=== PATIENT | female | born 1990 | race Caucasian/White ===

== ENCOUNTER → 2017-11-26 14:24 | Outpatient (CLI) | payer OTHER, SELFPAY ==
--- NOTE | 2017-11-26 | XR_ITS ---
XR cervical spine 5V Ordering Physician: Mayuri Garza Patient Age: 27 years: Female HISTORY: ITS.REASON: PAIN PARESTHESIAS TECHNIQUE: Five-view cervical spine series COMPARISON :C-spine from today FINDINGS The cervical spine is intact. Vertebral bodies and disc spaces intact well-maintained. Normal alignment. The neural foramen are widely patent and appear normal. Facets appear satisfactory. C1-C2 relationships normal. Apices the lungs are clear. Prevertebral soft tissues are generous but normal. IMPRESSION: C-spine intact with no fracture nor subluxation. C-spine appears normal
--- NOTE | 2017-11-26 | XR_ITS ---
XR shoulder LT min 2V Ordering Physician: Mayuri Garza Patient Age: 27 years: Female HISTORY: ITS.REASON: PAIN PARESTHESIAS TECHNIQUE: 3 views left shoulder COMPARISON :Previous left shoulder 08/29/2014 FINDINGS Left shoulder is intact with no fracture nor subluxation. The humeral head and neck intact. The glenohumeral joint intact and satisfactory. AC joint unremarkable scapula and visualized upper left apex and ribs unremarkable. Generous Old calcified hilar node left ирина instantly noted with a few scattered calcified granulomas left lung IMPRESSION: Negative left shoulder. Left shoulder Intact with No change since 2014
--- NOTE | 2017-11-26 | XR_ITS ---
XR thoracic spine 3V Ordering Physician: Mayuri Garza Patient Age: 27 years: Female HISTORY: ITS.REASON: PAIN PARESTHESIAS thoracic pain Pain paresthesias. 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 Pain for 2 days TECHNIQUE: AP lateral swimmer's view T-spine. COMPARISON :C-spine from today FINDINGS the thoracic vertebral bodies are intact. No compression fractures. There is a very slight subtle wedge configuration towards the lower thoracic vertebral bodies reflects normal anatomical variation in contributes to some mild kyphosis at the lower T-spine. The disc spaces are well-maintained. On the AP view there is some mild levocurvature of the lower thoracic spine a roughly 10 degrees on this nonstanding exam. Very subtle compensatory dextrocurvature above and below this even less evident Pedicles intact no paraspinal mass. Posterior ribs adjacent to the spine unremarkable IMPRESSION: The thoracic spine intact with no acute findings. Subtle levo curvature lower T-spine noted
== END ==
PROVIDERS: PCP Physician Assistant; Visit Provider Physician Assistant
DX: M54.6 Pain in thoracic spine (principal); M25.512 Pain in left shoulder
CPT/HCPCS: 72050; 72072; 73030

== ENCOUNTER 2019-12-24 13:43 | Emergency (ER) | payer OTHER, SELFPAY ==
[2019-12-24 13:46] VITALS: BP 132/92; PULSE 114; RESP 18; TEMP 36.8; O2SAT 97; BMI 24.3
--- NOTE | 2019-12-24 14:05 | US_ITS ---
PROCEDURE: US OB TRANSVAGINAL CLINICAL INDICATION: CRAMPING, BLEEDING First-trimester bleeding COMPARISON: No exams were available for comparison FINDINGS: An intrauterine gestational sac is present with a pole with a crown-rump length of 2.5 cm correlating to gestational age of 9 weeks 3 days. heart tones are not identified. There is some subcutaneous fluid noted along the posterior aspect of the pole. The adnexa are unremarkable. The cervix is closed IMPRESSION: There is an intrauterine gestation present with a crown-rump length of 2.5 cm correlating to gestational age of 9 weeks and 3 days. heart tones are not identified consistent with missed spontaneous miscarriage Dictated by: Bhupendra Cool MD 12/24/2019 22:09 Bhupendra Cool MD in [place] 12/24/2019 22:09
--- NOTE | 2019-12-24 14:13 | HMH.EDGENADL ---
ED Disposition Clinical Impression: Vaginal bleeding in patient after first trimester, Threatened miscarriage Disposition: Home, Self-Care Condition on Discharge: Good Instructions: DI for Threatened Additional Instructions: You have been evaluated for first trimester vaginal bleeding, threatened miscarriage. It is important to follow-up with your school resource officer in 24 to 48 hours for repeat beta hCG. Ultrasound was unable to see a viable heart rate today. Return to the emergency department for any new or worsening symptoms, vomiting, pain, other concerns. Referrals: Kaye Heard [Primary Care Provider] - Time of Disposition: 16:11 - Critical Care Critical Care Time: No Attestation: On 12/24/19, the high probability of a clinically significant, sudden or life threatening deterioration of the following system(s) required my full and direct attention, intervention and personal management. The time I documented below is in addition to time spent performing reported procedures but includes the following listed in this critical care notation. Medical Decision Making - Medical Records Medical records reviewed: Yes: I reviewed the patient's medical records. - Wesley Inquiry Pt receiving controlled substance: No Vital Signs: 12/24/19 13:46 12/24/19 14:59 12/24/19 15:01 Temperature 98.3 F Temperature Source Oral Pulse Rate Pulse Rate [Right] 114 H 95 H 100 H Respiratory Rate 18 16 Blood Pressure Blood Pressure [Right Arm] 132/92 H 137/85 137/85 Blood Pressure Mean [Right Arm] 105 102 102 Blood Pressure Source [Right Arm] Automatic Cuff Automatic Cuff Blood Pressure Position [Right Arm] Sitting Sitting 02 Sat by Pulse Oximetry 97 100 99 Oxygen Delivery Method Room Air Room Air 12/24/19 16:15 Temperature 98.1 F Temperature Source Pulse Rate 100 H Pulse Rate [Right] Respiratory Rate 18 Blood Pressure 133/87 Blood Pressure [Right Arm] Blood Pressure Mean [Right Arm] Blood Pressure Source [Right Arm] Blood Pressure Position [Right Arm] 02 Sat by Pulse Oximetry Oxygen Delivery Method - Lab Data Lab Results 12/24/19 13:57: Urine Color Yellow, Urine Appearance Clear, Urine pH 6.0, Ur Specific [place] 1.015, Urine Protein Negative, Urine Glucose (UA) Trace, Urine Ketones Negative, Urine Blood 3+, Urine Nitrate Negative, Urine Bilirubin Negative, Urine Urobilinogen 0.2, Ur Leukocyte Esterase Negative, Urine RBC Occasional, Urine WBC 3-5, Ur Squamous Epith Cells 3-5, Amorphous Sediment 2+, Urine Bacteria None 12/24/19 13:57: Urine HCG, Qual Positive 12/24/19 14:15: WBC 13.9 H, RBC 4.87, Hgb 14.4, Hct 42.8, MCV 87.9, MCH 29.6, MCHC 33.7, RDW 16.6, Plt Count 184, MPV 8.4, Neut % (Auto) 78.8, Lymph % (Auto) 15.8, Tripp % (Auto) 3.9, Eos % (Auto) 1.1, Baso % (Auto) 0.5, Neut # (Auto) 10.9 H, Lymph # (Auto) 2.2, Tripp # (Auto) 0.5, Eos # (Auto) 0.2, Baso # (Auto) 0.1 12/24/19 14:15: Sodium 139, Potassium 3.6, Chloride 102, Carbon Dioxide 27, Anion Gap 13.6, BUN 8, Creatinine 0.50 L, Estimated Creat Clear 184, Estimated GFR 146, Est GFR ( Amer) 177, Glucose 90, Calcium 9.3, Total Bilirubin 0.3, AST 33, ALT 25, Alkaline Phosphatase 62, Total Protein 7.4, Albumin 4.5, Globulin 2.9, Albumin/Globulin Ratio 1.6, HCG, Quant 3241 H 12/24/19 14:50: Blood Type O Positive, Antibody Screen Negative Result diagrams: 12/24/19 14:15 12/24/19 14:15 Orders (Tests/Meds): ORDERS Category Date Time Status US OB transvaginal Stat Ultrasound 12/24/19 14:05 Taken Medical Decision Narrative: In summary this is a 29-year-old G1, P0 female presenting to the emergency department with first trimester vaginal bleeding. Patient is clinically stable on arrival. Will obtain CBC, CMP, urinalysis, transvaginal ultrasound, type and screen. Urinalysis does not show signs of urinary tract infection. Laboratory results are generally unremarkable. Patient's blood type is A+, does not require RhoGam.
[2019-12-24 14:30] LABS: Urine Pregnancy, HCG Qual. Positive (Negative)
[2019-12-24 14:30] LABS: Basophils # 0.1 K/mm3 (0-0.2); Basophils % 0.5 % (0.1-2.0); Eosinophils # 0.2 K/mm3 (0.0-0.4); Eosinophils % 1.1 % (0.1-12.0); Hematocrit 42.8 % (37.0-47.0); Hemoglobin 14.4 g/dL (12.2-16.2); Lymphocytes # 2.2 K/mm3 (0.7-4.5); Lymphocytes % 15.8 % (10-50); Mean Corpuscular HGB Conc 33.7 g/dL (31.8-35.4); Mean Corpuscular Hemoglobin 29.6 pg (27.0-31.2); Mean Corpuscular Volume 87.9 fl (81-99); Mean Platelet Volume 8.4 fl (7.4-10.4); Monocytes # 0.5 K/mm3 (0.1-1.0); Monocytes % 3.9 % (1.7-9.3); Neutrophils # 10.9 K/mm3 (1.8-7.8); Neutrophils % 78.8 % (37.0-80.0); Platelet Count 184 K/mm3 (142-424); Red Blood Count 4.87 M/mm3 (4.20-5.40); Red Cell Distribution Width 16.6 % (11.5-17.5); White Blood Count 13.9 K/mm3 (4.8-10.8)
[2019-12-24 14:34] LABS: Appearance,Urine CLEAR (Clear); Bilirubin,Urine Negative (Negative); Blood, Urine 3+ (Negative); Color,Urine YELLOW (Yellow); Glucose,Urine (UA) TRACE (Negative); Ketones,Urine Negative (Negative); Leukocyte Esterase,Urine Negative (Negative); Microscopic, Urine URINE MICROSCOPIC (MICROSCOPIC); Nitrate,Urine Negative (Negative); Protein,Urine Negative (Negative); Specific Gravity, Urine 1.015 (1.005-1.030); Urobilinogen,Urine 0.2 EU/dl (0.2)
[2019-12-24 14:41] LABS: Chloride 102 mmol/L (98-107); Potassium 3.6 mmoL/L (3.5-5.1); Sodium 139 mmol/L (136-145)
[2019-12-24 14:44] LABS: Alanine Aminotransferase 25 U/L (12-78); Albumin Level 4.5 g/dl (3.5-5.0); Albumin/Globulin Ratio 1.6 (1.1-1.8); Alkaline Phosphatase 62 U/L (38-126); Anion Gap 13.6 mEq/L (5-15); Aspartate Amino Transferase 33 U/L (14-36); Bilirubin,Total 0.3 mg/dl (0.2-1.3); Blood Urea Nitrogen 8 mg/dl (7-17); Calcium 9.3 mg/dl (8.4-10.2); Carbon Dioxide 27 mmol/L (22.0-30.0); Creatinine Clearance Estimated 184 mL/min (50-200); Estimated Glomerular Filt Rate 146 ml/min (>60); GFR (African American) 177 ML/MIN (>60); Globulin 2.9 g/dL (1.3-3.2); Glucose 90 mg/dl (74-100); Total Protein,Serum 7.4 g/dl (6.3-8.2)
[2019-12-24 14:59] VITALS: BP 137/85; PULSE 95; RESP 16; O2SAT 100
[2019-12-24 15:00] LABS: Amorphous Sediment,Urine 2+ /lpf; RBC,Urine Occasional #/hpf (0-3)
[2019-12-24 15:01] VITALS: BP 137/85; PULSE 100; O2SAT 99
[2019-12-24 15:02] LABS: HCG,Quantitative 3241 mIU/ml (0-5.42)
[2019-12-24 16:15] VITALS: BP 133/87; PULSE 100; RESP 18; TEMP 36.7; O2SAT 100
== END 2019-12-24 16:20 | disposition home or self-care (01) ==
PROVIDERS: Emergency Provider Emergency Medicine; PCP Nurse Practitioner Family
DX: O20.0 Threatened abortion (principal)
CPT/HCPCS: 76817; 80053; 81001; 81025; 84702; 85025; 86850; 99284

== ENCOUNTER → 2023-03-13 15:54 | Outpatient (CLI) | payer OTHER, SELFPAY ==
--- NOTE | 2023-03-13 15:59 | XR_ITS ---
FINAL REPORT TECHNIQUE: 3 views CLINICAL HISTORY: back pain COMPARISON: None FINDINGS: There is no fracture present. There is no malalignment. Mild anterior osteophytes are present at several levels. IMPRESSION: No acute process. Reviewed, Interpreted and Dictated by Chandler Carrillo MD Transcribed by Trista Groves Authenticated and . [facility]
--- NOTE | 2023-03-13 15:59 | XR_ITS ---
FINAL REPORT TECHNIQUE: Chest PA & Lateral CLINICAL HISTORY: chest pain FINDINGS: 2 views of the chest were performed. The heart size is normal. The mediastinum is within normal limits. There is no acute cardiopulmonary process. There are no pleural effusions. There is no pneumothorax. The bony thorax appears intact. IMPRESSION: No acute cardiopulmonary process. Reviewed, Interpreted and Dictated by Chandler Carrillo MD Transcribed by Trista Groves Authenticated and [facility]
--- NOTE | 2023-03-13 15:59 | XR_ITS ---
FINAL REPORT TECHNIQUE: 3 views CLINICAL HISTORY: BACK and neck PAIN COMPARISON: 9 FINDINGS: There is no fracture present. There is mild reversal of the cervical lordosis. There are no significant degenerative changes. IMPRESSION: Mild reversal of the cervical lordosis, which can be seen with positioning or muscle spasm. No acute bony abnormality identified. Reviewed, Interpreted and Dictated by Chandler Carrillo MD Transcribed by Trista Groves Authenticated and [facility]
== END ==
PROVIDERS: PCP Nurse Practitioner Family; Visit Provider Nurse Practitioner Family
DX: M54.2 Cervicalgia (principal); M54.6 Pain in thoracic spine; R07.89 Other chest pain
CPT/HCPCS: 71046; 72040; 72072

== ENCOUNTER → 2023-03-30 11:02 | Outpatient (CLI) | payer OTHER, SELFPAY ==
[2023-03-30 11:48] LABS: Basophils % 0.5 % (0.1-2.0); Eosinophils # 0.1 K/mm3 (0.0-0.4); Eosinophils % 1.5 % (0.1-12.0); Hematocrit 48.3 % (37.0-47.0); Hemoglobin 16.3 g/dL (12.2-16.2); Lymphocytes # 1.6 K/mm3 (0.7-4.5); Lymphocytes % 18.8 % (10-50); Mean Corpuscular HGB Conc 33.8 g/dL (31.8-35.4); Mean Corpuscular Hemoglobin 31.5 pg (27.0-31.2); Mean Platelet Volume 8.9 fl (7.4-10.4); Monocytes # 0.3 K/mm3 (0.1-1.0); Monocytes % 3.6 % (1.7-9.3); Neutrophils # 6.5 K/mm3 (1.8-7.8); Neutrophils % 75.6 % (37.0-80.0); Platelet Count 188 K/mm3 (142-424); Red Cell Distribution Width 12.5 % (11.5-17.5); White Blood Count 8.6 K/mm3 (4.8-10.8)
[2023-03-30 12:15] LABS: Alanine Aminotransferase 27 U/L (12-78); Albumin Level 4.4 g/dl (3.5-5.0); Alkaline Phosphatase 65 U/L (38-126); Anion Gap 10.8 mEq/L (5-15); Aspartate Amino Transferase 30 U/L (14-36); Bilirubin,Direct 0.1 mg/dl (0.0-0.4); Bilirubin,Indirect 0.4 mg/dL (0.0-0.9); Bilirubin,Total 0.5 mg/dl (0.2-1.3); Bilirubin,Unconjugated 0.4 mg/dL (0.0-1.1); Blood Urea Nitrogen 9 mg/dl (7-17); Calcium 8.6 mg/dl (8.4-10.2); Carbon Dioxide 30 mmol/L (22.0-30.0); Chloride 101 mmol/L (98-107); Chol/HDL Ratio 4.3 (1-3.5); Cholesterol 159 mg/dl (140-200); Estimated Glomerular Filt Rate 83 ml/min (>60); GFR (African American) 101 ML/MIN (>60); Glucose 106 mg/dl (74-100); HDL Cholesterol 37 mg/dl (40-60); Potassium 3.8 mmoL/L (3.5-5.1); Sodium 138 mmol/L (136-145); Total Protein,Serum 6.9 g/dl (6.3-8.2); Triglycerides 191 mg/dl (30-150); VLDL Cholesterol 38 mg/dL (0-40)
[2023-03-30 12:27] LABS: Direct LDL Cholesterol 88.57 mg/dL (100-129)
[2023-03-30 12:36] LABS: Free T4 (Free Thyroxine) 1.05 ng/dl (0.78-2.19)
[2023-03-30 12:46] LABS: Thyroid Stimulating Hormone 0.65 uIU/mL (0.465-4.68)
== END ==
LOC: LAB 11:04
PROVIDERS: PCP Nurse Practitioner Family; Visit Provider Nurse Practitioner
DX: R06.00 Dyspnea, unspecified (principal); R07.89 Other chest pain; R00.0 Tachycardia, unspecified; I11.9 Hypertensive heart disease without heart failure; R94.31 Abnormal electrocardiogram [ECG] [EKG]; E11.9 Type 2 diabetes mellitus without complications; I63.9 Cerebral infarction, unspecified; F17.200 Nicotine dependence, unspecified, uncomplicated
CPT/HCPCS: 36415; 80048; 80061; 80076; 84439; 84443; 85025; 93270

== ENCOUNTER 2024-02-25 14:40 | Outpatient (CLI) | payer OTHER, SELFPAY ==
--- NOTE | 2024-02-25 14:44 | US_ITS ---
PROCEDURE INFORMATION: Exam: US Soft Tissue Head and Neck, Thyroid Exam date and time: 02/25/2024 2:51 PM Age: 33 years old Clinical indication: Other: Enlarged physical exam; Additional info: Disorder of thyroid TECHNIQUE: Imaging protocol: Real-time ultrasound scan of the neck with image documentation. Exam focused on the thyroid. Total images: 25 COMPARISON: CR XR CERVICAL SPINE 3V 03/13/2023 4:02 PM FINDINGS: Right thyroid lobe: Right lobe measures 4.9 x 1.5 x 2.2 cm. Left thyroid lobe: Left lobe measures 4.8 x 1.3 x 1.8 cm. Isthmus: Isthmus measures 2 mm. Other findings: No thyroid nodules. IMPRESSION: 1. No thyroid nodules. 2. TI-RADS 1. Negative examination. Follow-up as clinically warranted.
== END 2024-02-25 23:59 | disposition home or self-care (01) ==
LOC: RAD 14:41
PROVIDERS: PCP Nurse Practitioner Family; Visit Provider Nurse Practitioner Family
DX: E07.9 Disorder of thyroid, unspecified (principal)
CPT/HCPCS: 76536

== ENCOUNTER 2024-03-03 12:55 | Outpatient (CLI) | payer OTHER, SELFPAY ==
--- NOTE | 2024-03-03 | US_ITS ---
FINAL REPORT CLINICAL HISTORY: Smoker, claudication COMPARISON: None FINDINGS: ANKLE-BRACHIAL PRESSURE INDICES Pressure indices are as follows: RIGHT LOWER EXTREMITY: Ankle-brachial pressure index: 1.1 Comments: Normal LEFT LOWER EXTREMITY: Ankle-brachial pressure index: 1.1 Comments: Normal CONCLUSION: No evidence of significant obstructive peripheral vascular disease of the lower extremities Reviewed, Interpreted and Dictated by Rogelio Jaramillo III, MD Transcribed by Trista Groves Authenticated and . [facility]
== END 2024-03-03 23:59 | disposition home or self-care (01) ==
PROVIDERS: PCP Nurse Practitioner Family; Visit Provider Nurse Practitioner Family
DX: I73.9 Peripheral vascular disease, unspecified (principal); E07.9 Disorder of thyroid, unspecified
CPT/HCPCS: 93923

== ENCOUNTER 2024-04-04 08:27 | Outpatient (CLI) | payer OTHER, SELFPAY ==
[2024-04-04 08:48] LABS: Basophils # 0.2 K/mm3 (0-0.2); Basophils % 3.4 % (0.1-2.0); Eosinophils # 0.1 K/mm3 (0.0-0.4); Eosinophils % 1.8 % (0.1-12.0); Hematocrit 44.5 % (37.0-47.0); Lymphocytes # 1.5 K/mm3 (0.7-4.5); Lymphocytes % 22.6 % (10-50); Mean Corpuscular HGB Conc 33.7 g/dL (31.8-35.4); Mean Corpuscular Hemoglobin 30.5 pg (27.0-31.2); Mean Corpuscular Volume 90.6 fl (81-99); Mean Platelet Volume 8.7 fl (7.4-10.4); Monocytes # 0.2 K/mm3 (0.1-1.0); Monocytes % 3.5 % (1.7-9.3); Neutrophils # 4.5 K/mm3 (1.8-7.8); Neutrophils % 68.8 % (37.0-80.0); Platelet Count 201 K/mm3 (142-424); Red Blood Count 4.91 M/mm3 (4.20-5.40); Red Cell Distribution Width 12.2 % (11.5-17.5); White Blood Count 6.6 K/mm3 (4.8-10.8)
[2024-04-04 09:12] LABS: Alanine Aminotransferase 22 U/L (12-78); Albumin Level 4.3 g/dl (3.5-5.0); Alkaline Phosphatase 77 U/L (38-126); Anion Gap 10.9 mEq/L (5-15); Aspartate Amino Transferase 34 U/L (14-36); Bilirubin,Direct 0.4 mg/dl (0.0-0.4); Bilirubin,Indirect 0.2 mg/dL (0.0-0.9); Bilirubin,Total 0.6 mg/dl (0.2-1.3); Bilirubin,Unconjugated 0.2 mg/dL (0.0-1.1); Blood Urea Nitrogen 13 mg/dl (7-17); Calcium 8.8 mg/dl (8.4-10.2); Carbon Dioxide 28 mmol/L (22.0-30.0); Chloride 103 mmol/L (98-107); Estimated Glomerular Filt Rate 96 ml/min (>60); GFR (African American) 117 ML/MIN (>60); Glucose 116 mg/dl (74-100); Potassium 3.9 mmoL/L (3.5-5.1); Sodium 138 mmol/L (136-145); Total Protein,Serum 6.7 g/dl (6.3-8.2)
[2024-04-04 09:28] LABS: Free T4 (Free Thyroxine) 0.83 ng/dl (0.78-2.19)
[2024-04-04 09:42] LABS: Thyroid Stimulating Hormone 0.85 uIU/mL (0.465-4.68)
[2024-04-04 09:54] LABS: Erythrocyte Sedimentation Rate 28 mm/hr (0-20)
[2024-04-04 11:06] LABS: Iron 93 ug/dL (37-170)
[2024-04-04 11:16] LABS: Total Iron Binding Capacity 337 ug/dL (265-497)
[2024-04-04 11:41] LABS: Ferritin 17.1 ng/ml (6.24-137)
[2024-04-04 12:41] LABS: Intact Parathyroid Hormone 58.8 pg/mL (7.5-53.5)
== END 2024-04-04 23:59 | disposition home or self-care (01) ==
LOC: LAB 08:28
PROVIDERS: PCP Nurse Practitioner Family; Visit Provider Internal Medicine
DX: M79.606 Pain in leg, unspecified (principal); L81.9 Disorder of pigmentation, unspecified; R07.89 Other chest pain; R94.31 Abnormal electrocardiogram [ECG] [EKG]; R00.0 Tachycardia, unspecified
CPT/HCPCS: 36415; 80048; 80076; 82533; 82728; 83540; 83550; 83970; 84439; 84443; 85025; 85651; 86140

== ENCOUNTER 2024-04-07 12:49 | Outpatient (CLI) | payer OTHER, SELFPAY ==
--- NOTE | 2024-04-07 | CA_ITS ---
APPROVED REPORT EXAM: Comprehensive 2D, Doppler, and color-flow Echocardiogram [employer]: BIBI [place], RVS Ht: 5 ft 8 in Wt: 183lbs BSA: 1.97 BP: 137/94 mmHg Indications: CP, Abn EKG, Ex-smoke, [place]am[place] Hx- ASCVD 2D Dimensions Left Atrium 2.34 cm F: 2.7 - 3.8 M-Mode Dimensions RVDd 2.38 cm (0.9-2.6) LA Diam 3.19 cm (1.9-4.0) LVDd 4.25 cm (3.5-5.7) LVDs 2.78 cm (3.5-5.7) IVSd 0.77 cm (0.6-1.1) PWd 0.77 cm (0.6-1.1) EF (Teich) 64.10% EPSs 0.47 cm FS 34.60% EDV (Teich) 80.80 mL TAPSE 2.06 (<1.7) ESV (Teich) 29.00 mL LV Diastology E Decel Time 247 (160-240 msec) E/A Ratio 1.28 MED A' 9.20 cm/s LAT A' 8.60 cm/s Aortic Valve BRENT Index 1.49 cm2/m2 AoV Peak Benson. 125.0 (50-130 cm/s) AO Peak GR. 6.30 mmHg AO Mean GR. 3.10 (<5 mmHg) AO VTI 25.9 (18-25 cm) BRENT (VTI) 3.01 (2.5-4.5 cm2) Mitral Valve MV A Velocity 68.0 (40-130 cm/s) E/A Ratio 1.28 Pulmonary Valve PV Peak Velocity 98.0 (50-150 cm/s) Left Ventricle The left ventricle is normal size. The left ventricular systolic function is normal. The left ventricular ejection fraction is within the normal range. There is normal left ventricular wall thickness. There is normal LV segmental wall motion. The left ventricular diastolic function is normal. LVEF is 55%. Right Ventricle The right ventricle is normal size. The right ventricular systolic function is normal. Atria The left atrium size is normal. The right atrium size is normal. The interatrial septum is not well-visualized. Aortic Valve The aortic valve opens well. There is no aortic valvular stenosis. No aortic regurgitation is present. Mitral Valve The mitral valve is normal in structure. No evidence of mitral valve stenosis. There is no mitral valve regurgitation noted. Tricuspid Valve Tricuspid valve is grossly normal in structure and function. Trace tricuspid regurgitation. There is insufficient TR jet to estimate RVSP. Pulmonic Valve The pulmonary valve is normal in structure. Trace pulmonic regurgitation. Great Vessels The aortic root is normal in size. The ascending aorta is normal in size. IVC is normal in size and collapses >50% with inspiration. Pericardium There is no pericardial effusion. Other Information Study Quality: Adequate Conclusion Normal biventricular systolic function. No significant valvular stenosis or regurgitation. Electronically signed by : Lisseth Sierra MD 04/12/2024 23:43:20
--- NOTE | 2024-04-07 13:03 | CA_ITS ---
FINAL REPORT CLINICAL HISTORY: no FINDINGS: Color Doppler, duplex Doppler and compression sonography of the bilateral lower extremities was performed. There is no evidence of deep venous thrombosis from the level of the groin to the calf. The deep veins are patent and compressible. IMPRESSION: No evidence of deep venous thrombosis bilateral lower extremities. Reviewed, Interpreted and Dictated by Rogelio Jaramillo III, MD Transcribed by Gemma Pacheco Authenticated and [facility]
== END 2024-04-07 23:59 | disposition home or self-care (01) ==
LOC: RT 12:50
PROVIDERS: PCP Nurse Practitioner Family; Visit Provider Internal Medicine
DX: R07.89 Other chest pain (principal); R00.0 Tachycardia, unspecified; R94.31 Abnormal electrocardiogram [ECG] [EKG]; M79.604 Pain in right leg; M79.605 Pain in left leg; L81.9 Disorder of pigmentation, unspecified
CPT/HCPCS: 93306; 93970